=== PATIENT | male | born 1965 | race Two or more races ===

== ENCOUNTER 2019-08-30 09:55 | Emergency (ER) | payer OTHER ==
[~2019-08-30] VITALS: Ht 177.8 cm; Wt 90.7 kg
[2019-08-30] MEDS ORDERED: ATORVASTATIN CA20 MG PO (11:06)
[2019-08-30] MEDS ORDERED: AMLODIPINE-OLM1 EAC3 (11:07)
== END 2019-08-30 13:31 | disposition home or self-care (01) ==
LOC: ER 09:55
DX: J20.8 Acute bronchitis due to other specified organisms (principal)

== ENCOUNTER 2019-10-01 01:49 | Inpatient (IN) | payer OTHER ==
[~2019-10-01] VITALS: Ht 175.3 cm; Wt 88.5 kg
[~2019-10-01 01:49] MED LIST: AMLODIPINE-OLM1 EAC3; ATORVASTATIN CA20 MG PO
[2019-10-01] MEDS ORDERED: PULMICOR (02:02)
[2019-10-01] MEDS ORDERED: PROAIR HFA8.5 GM (02:02)
--- NOTE | 2019-10-01 02:10 | NUR ---
SE RECIBE PACIENTE ALERTA Y ORIENTADO REFIERE TENER ASHLEY TOS, FALTA DE AIRE. INDICA HACE 2 SEMANAS COMENZARON LOS SINOTMAS FUE A ROLY DE EMERGENCIA Y ESTA UTILIZANDO ALBUTEROL Y PURMICOR. PACIENTE INDICA SE SIENTA CADA YECENIA PEOR Y NO CACERES MAGDALENA. SE ACOMODA PACIENTE EN AREA DE ASMA UNIT Y SE PRESENTA A MEDICO DE TURNO.
--- NOTE | 2019-10-01 02:28 | NUR ---
SE ORIENTA PACIENTE SOBRE TRATAMIENTO MEDICO EL CUAL REFIERE ENTENDER SE REALIZA MUESTRA DE YESSY DE FORMA ASEPTICA Y SE ADMINISTRA MEDICAMENTO TATUM ORDEN MEDICA. EL PACIENTE TOLERA INTERVENCION DEL RM.
--- NOTE | 2019-10-01 10:14 | NUR ---
PACIENTE ALERTA Y ORIENTADO POR SUSAN ESFERAS EN CAMA EN POSICION SEMI-SENTADA ASISTIDO RESPIRATORIAMENTE CON VM 35%. SE OBSERVA H/L PATENTE MATTHIAS DE EDEMA Y ENROJECIMIENTO. PENDIENTE CONSULTA CON DRA. PAGE.
[2019-10-04] MEDS ORDERED: ZITHROMAX500 MG PO (15:18)
[2019-10-04] MEDS ORDERED: SYMBICORT 16010.2 GM IH (15:19)
[2019-10-04] MEDS ORDERED: MEDROLPACK PO (15:19)
[2019-10-04] MEDS ORDERED: PROVENTIL HFA6.7 GM IH (15:20)
== END 2019-10-04 15:57 | disposition home or self-care (01) | DRG 202 ==
LOC: ER 01:49 → MEDJ 10:34 → MEDI 10:34
PROVIDERS: ADMIT Internal Medicine
PROC: 3E0F7GC Introduction of Other Therapeutic Substance into Respiratory Tract, Via Natural or Artificial Opening (ICD-10-PCS; principal; 2019-10-01)
PROC: 4A133R1 Monitoring of Arterial Saturation, Peripheral, Percutaneous Approach (ICD-10-PCS; 2019-10-01)
PROC: BB24ZZZ Computerized Tomography (CT Scan) of Bilateral Lungs (ICD-10-PCS; 2019-10-01)
PROC: 8E0ZXY6 Isolation (ICD-10-PCS; 2019-10-02)
DX: J20.0 Acute bronchitis due to Mycoplasma pneumoniae (principal); J45.31 Mild persistent asthma with (acute) exacerbation; D86.0 Sarcoidosis of lung; E04.1 Nontoxic single thyroid nodule; J22 Unspecified acute lower respiratory infection; R09.02 Hypoxemia

== ENCOUNTER 2020-05-24 07:42 | Outpatient (CLI) | payer OTHER ==
[~2020-05-24 07:42] MED LIST changes: +MEDROLPACK PO; +PROAIR HFA8.5 GM; +PROVENTIL HFA6.7 GM IH; +PULMICOR; +SYMBICORT 16010.2 GM IH; +ZITHROMAX500 MG PO
== END 2020-05-24 07:48 | disposition home or self-care (01) ==
LOC: SONOGRAMA 07:42
PROVIDERS: ATTEND Pathology Anatomic Pathology & Clinical Pathology
DX: E04.1 Nontoxic single thyroid nodule (principal)